=== PATIENT | female | born 1940 | race Caucasian/White ===

== ENCOUNTER 2017-02-24 22:40 | Emergency (ER) | payer OTHER ==
[2017-02-24 22:50] VITALS: BP 155/72; PULSE 75; RESP 16; TEMP 98.1; O2SAT 99
--- NOTE | 2017-02-24 23:21 | EDPHY ---
H & P HPI/ROS: This 76-year-old female presents to the emergency department today after hitting her left lower leg on a square padded ottoman at her home just prior to arrival. She now has a large hematoma to the side of her left lower leg. She states it does not hurt much but she was concerned by its size. She takes an 81 mg aspirin per day but no other anticoagulants. She did not fall and she denies any other injury. There is no break in the skin. Past Medical/Surgical History: Includes Palpitations, HTN, MVP, Breast Cancer "Stage 0"; Hysterectomy and Left Lumpectomy Social History: No Tobacco or ETOH use Smoking Status: Never smoked Physical Exam: A/O x 3, anxious. Ambulates without difficulty. Approximately 8x10 cm hematoma over the proximal left lateral lower leg. No open wounds. Mildy TTP. No sign of compartment syndrome. No concern for DVT. Nml DP pulse. No open wounds or abrasions. Constitutional: Initial Vital Signs Temperature (C) 98.1 F 02/24/17 22:46 Heart Rate 75 02/24/17 22:46 Respiratory Rate 16 02/24/17 22:46 Blood Pressure 155/72 H 02/24/17 22:46 O2 Sat (%) 99 02/24/17 22:46 O2 Delivery Mode Room Air Allergies/Adverse Reactions: amoxicillin Allergy (Verified 02/24/17 22:51) Antihistamines - Alkylamine Allergy (Verified 02/24/17 22:51) Antihistamines - Ethanolamine Allergy (Verified 02/24/17 22:51) Antihistamines - Ethylenediamine Allergy (Verified 02/24/17 22:51) Antihistamines - Piperazine Allergy (Verified 02/24/17 22:51) Antihistamines - Piperidine Allergy (Verified 02/24/17 22:51) clindamycin Allergy (Verified 02/24/17 22:51) levofloxacin [From Levaquin] Allergy (Verified 02/24/17 22:51) Home Medications: Medication Instructions Recorded Diltiazem Xr [Dilacor Xr] 08/27/16 Aspirin 81mg (*) 02/24/17 Docusate Sodium 02/24/17 Melatonin 02/24/17 Medical Decision Making - Diagnostics Imaging Results: Tib/Fib: No fracture by my read. Imaging: I viewed and interpreted images myself ED Course/Re-evaluation: The patient was seen and examined. X-ray of left Tib/Fib negative for fracture. Elastic bandages applied to left lower leg. Ice pack given to patient. Discharge instructions reviewed and all questions answered. Differential Diagnosis: Contusion; Hematoma. No concern for DVT, Compartment syndrome, No abrasions or open wounds. Departure - Departure Disposition: Home, Routine, Self-Care Clinical Impression: Contusion of lower leg, left, Hematoma Condition: Good Instructions: Contusion in Adults (ED), Hematoma (ED) Additional Instructions: Follow up if the hematoma does not improve over the next 1-2 weeks or sooner if any further problems or concerns. Referrals: Sharonda Greco MD [Primary Care Provider] - As per Instructions
== END 2017-02-24 23:46 | disposition home or self-care (01) ==
LOC: CED 22:40
DX: S80.12XA Contusion of left lower leg, initial encounter (principal); I10 Essential (primary) hypertension; Z79.82 Long term (current) use of aspirin; Z85.3 Personal history of malignant neoplasm of breast; W22.8XXA Striking against or struck by other objects, initial encounter; Y92.009 Unspecified place in unspecified non-institutional (private) residence as the place of occurrence of the external cause
CPT/HCPCS: 73590-PO

== ENCOUNTER 2018-06-03 08:32 | Emergency (ER) | payer OTHER ==
[2018-06-03 08:35] VITALS: BP 156/69
--- NOTE | 2018-06-03 09:07 | EDPHY ---
H & P Stated Complaint: PAIN, BURNING WITH URINATION SINCE YESTERDAY Time Seen by Provider: 06/03/18 08:44 HPI/ROS: CHIEF COMPLAINT: Pain with urination HISTORY OF PRESENT ILLNESS: This is a 77 presents with a one-day history of dysuria, urgency, and frequency. She has a history of urinary tract infections. She has not had fever or flank pain. She does not otherwise feel ill. REVIEW OF SYSTEMS: A ten system review of systems was performed and is negative with the exception of the items mentioned in the HPI. Past medical history: 1. Mood disorder 2. Hypertension 3. SVT 4. Breast cancer status post lumpectomy and radiation 5. Head injury with loss of consciousness in 2004 Past surgical history: Hysterectomy Social history: She lives with her . She does not use tobacco products or alcohol. General Appearance: Alert. Vital signs reviewed. Eyes: Pupils equal and round, no conjunctival injection, no discharge. Anicteric. Respiratory: Lungs are clear to auscultation; no wheezes, rales, or rhonchi. Cardiovascular: Regular rate and rhythm; no murmur, rub, or gallop. Gastrointestinal: Abdomen is soft and nontender, no masses or organomegaly, bowel sounds normal. Skin: Warm and dry, no rashes on exposed skin, normal color. Back: Nontender to palpation over the thoracolumbar spine. No CVAT. Extremities: No lower extremity edema, no calf tenderness or swelling. Neurological: Alert and oriented. Moving all four extremities easily and equally. Psychiatric: Normal affect. - Personal History Current Tetanus Diphtheria and Acellular Pertussis (TDAP): Yes Tetanus Vaccine Date: - Medical/Surgical History Hx Asthma: No Hx Chronic Respiratory Disease: No Hx Diabetes: No Hx Cardiac Disease: Yes Hx Renal Disease: No Hx Cirrhosis: No Hx Alcoholism: No Hx HIV/AIDS: No Hx Splenectomy or Spleen Trauma: No Other PMH: HTN. SVT. HYsterectomy. Lumpectomy breast w radiation . diverticulitis - Social History Smoking Status: Never smoked Constitutional: Initial Vital Signs Temperature (C) 36.4 C 06/03/18 08:34 Heart Rate 78 06/03/18 08:34 Respiratory Rate 14 06/03/18 08:34 Blood Pressure 156/69 H 06/03/18 08:34 O2 Sat (%) 96 06/03/18 08:34 O2 Delivery Mode Room Air Allergies/Adverse Reactions: amoxicillin Allergy (Verified 06/03/18 08:43) Antihistamines - Alkylamine Allergy (Verified 06/03/18 08:43) Antihistamines - Ethanolamine Allergy (Verified 06/03/18 08:43) Antihistamines - Ethylenediamine Allergy (Verified 06/03/18 08:43) Antihistamines - Piperazine Allergy (Verified 06/03/18 08:43) Antihistamines - Piperidine Allergy (Verified 06/03/18 08:43) clindamycin Allergy (Verified 06/03/18 08:43) levofloxacin [From Levaquin] Allergy (Verified 06/03/18 08:43) Home Medications: Medication Instructions Recorded Diltiazem Xr [Dilacor Xr] 08/27/16 Aspirin 81mg (*) 02/24/17 Docusate Sodium 02/24/17 Melatonin 02/24/17 Escitalopram Oxalate 06/03/18 Nitrofurantoin Macrobid [Macrobid] 100 mg PO BID #10 cap 06/03/18 Phenazopyridine HCl [Pyridium] 200 mg PO TID #6 tab 06/03/18 Medical Decision Making ED Course/Re-evaluation: Urine dip analysis reveals 1+ leukocyte esterase and is positive for nitrates. I suspect that she has urinary tract infection, given her symptoms. She has allergies to multiple medications but has done well in the past with Macrobid. She is given a prescription for Macrobid and also for peridium to treat her dysuria. I do not suspect pyelonephritis. She does not have flank pain and I do not think that she has ureterolithiasis. There is no right-sided abdominal pain and appendicitis seems unlikely. - Data Points Point of Care Test Results: Urine Dip Collection Date 06/03/18 Collection Time 08:30 Specific [place] (1.002-1.030) 1.020 PH (5.0-7.5) 7.0 Leukocytes (Negative) 1+ Nitrites (Negative) Positive Protein (Negative) Negative Glucose (Negative) Negative Ketones (Negative) Negative Urobilnogen (0.2-1.0 EU) 0.2 Bilirubin (Negative) Negative Blood (Negative) Negative Departure - Departure Disposition: Home, Routine, Self-Care Clinical Impression: Urinary tract infection Qualifiers: Urinary tract infection type: acute cystitis Hematuria presence: without hematuria Qualified Code(s): N30.00 - Acute cystitis without hematuria Condition: Good Instructions: Urinary Tract Infection in Women (ED) Additional Instructions: Take the Macrobid, twice Daily, for the next 5 days. Your urine has been sent for culture. Use the peridium as needed for pain with urination. This medication will turn your urine orange, do not be worried by that. You should be re-evaluated if you have fever, severe abdominal or flank pain, inability to urinate, any new or concerning symptoms. Keep your appointment with Dr. Greco on . Referrals: Sharonda Greco MD [Primary Care Provider] - As per Instructions Prescriptions: Nitrofurantoin Macrobid [Macrobid] 100 mg PO BID #10 cap Phenazopyridine HCl [Pyridium] 200 mg PO TID #6 tab
== END 2018-06-03 09:20 | disposition home or self-care (01) ==
LOC: CED 08:32
DX: N30.00 Acute cystitis without hematuria (principal)